=== PATIENT | male | born 1990 | race Native Hawaiian/Other Pacific Islander ===

== ENCOUNTER 2017-02-14 11:09 | Emergency (ER) | payer OTHER ==
[~2017-02-14] VITALS: Ht 167.6 cm; Wt 61.2 kg
[2017-02-14 11:55] VITALS: BP 138/91; TEMP 98.3
== END 2017-02-14 11:45 | disposition home or self-care (01) ==
LOC: ED 11:09
DX: S62.306A Unspecified fracture of fifth metacarpal bone, right hand, initial encounter for closed fracture (principal); W22.09XA Striking against other stationary object, initial encounter
CPT/HCPCS: 99282

== ENCOUNTER 2018-10-25 16:30 | Emergency (ER) | payer OTHER ==
[~2018-10-25] VITALS: Ht 172.7 cm; Wt 59.0 kg
[2018-10-25 17:26] VITALS: BP 115/68; TEMP 98.5
== END 2018-10-25 17:32 | disposition home or self-care (01) ==
LOC: ED 16:30
DX: H66.91 Otitis media, unspecified, right ear (principal); S00.431A Contusion of right ear, initial encounter; W22.8XXA Striking against or struck by other objects, initial encounter
CPT/HCPCS: 99281